=== PATIENT | female | born 1960 | race Caucasian/White ===

== ENCOUNTER 2021-12-24 01:07 | Emergency (ER) | payer BC ==
[2021-12-24 01:21] VITALS: BP 165/87
[2021-12-24] MEDS ORDERED: diphenhydrAMINE 50 MG/ML VIAL IV ONE (02:37)
[2021-12-24] MEDS ORDERED: FAMOTIDINE 20 MG/2 ML INJ IV ONE (02:37)
[2021-12-24] MEDS ORDERED: methylPREDNISolone Sod Succinate 125 MG/2 ML INJ IV ONE (02:38)
--- NOTE | 2021-12-24 04:34 | Emergency Department Report ---
HPI - General Chief Complaint: Allergic Reaction Time Seen by Provider: 12/24/21 02:36 - HPI HPI: Patient 61-year-old female with history of hypertension, lymphadenectomy who presents for allergic reaction with itching and tongue swelling times 4 hours tonight. Patient states unknown suspicious food. Patient is taking lisinopril p.o. however. No nausea or vomiting. Patient stated initially felt as though her tongue was swelling. Patient took Benadryl at home prior to coming to ED which provided some relief. There is no nausea vomiting no fever chills no wheezing or stridor. Patient is able to speak in full sentences. There is no respiratory distress. ED Past Medical Hx - Past Medical History Previous Medical History?: Yes Hx Hypertension: Yes Additional medical history: hyperthyroidism, Breast Ca - Surgical History Past Surgical History?: Yes Additional Surgical History: Lypm node removal - Social History Smoking Status: Never Smoker Substance Use Type: None - Medications Home Medications: Home Medications Medication Instructions Recorded Confirmed Last Taken Type EPINEPHrine [Epipen 2-Amilcar] 0.3 mg IM PRN PRN 14 Days #1 kit 12/24/21 Unknown Rx Famotidine [Pepcid] 20 mg PO BID 7 Days #14 tablet 12/24/21 Unknown Rx dexAMETHasone [Decadron] 4 mg PO Q12H 5 Days #10 tablet 12/24/21 Unknown Rx diphenhydrAMINE [Benadryl CAP] 25 mg PO Q8HR PRN #30 capsule 12/24/21 Unknown Rx ED Review of Systems ROS: Stated complaint: THROAT SWELLING/QUIQUE Other details as noted in HPI Constitutional: denies: chills, fever Eyes: denies: eye pain, eye discharge, vision change ENT: congestion, other. denies: ear pain, throat pain, dental pain, epistaxis (Tongue swelling) Respiratory: denies: cough, shortness of breath, wheezing Cardiovascular: denies: chest pain, palpitations Endocrine: no symptoms reported Gastrointestinal: denies: abdominal pain, nausea, diarrhea Genitourinary: denies: urgency, dysuria, discharge Musculoskeletal: denies: back pain, joint swelling, arthralgia Skin: denies: rash, lesions Neurological: denies: headache, weakness, paresthesias, vertigo Psychiatric: denies: anxiety, depression Hematological/Lymphatic: denies: easy bleeding, easy bruising Physical Exam - Physical Exam Vital Signs: Vital Signs 12/24/21 01:17 Temperature 98.5 F Pulse Rate 78 Respiratory 18 Rate Blood Pressure 165/87 [Left] O2 Sat by Pulse 98 Oximetry General: Patient is alert oriented x3. Patient appears nontoxic with no acute distress. There is no wheezing or stridor at this time. Patient is speaking in full sentences at this time. Physical Exam: Patient is ANO x3 amatory with steady gait neuro is intact and normal. Patient is PERRLA EOMI ENT airway is patent, respirations are even and unlabored, no lesions no exudate no stridor. Lungs are clear throughout heart rate is normal heart tones are normal. Abdomen soft nontender. Distal pulses are normal. ED Course Benadryl, Pepcid, Decadron will reassess.Vital Signs 12/24/21 01:17 Temperature 98.5 F Pulse Rate 78 Respiratory 18 Rate Blood Pressure 165/87 [Left] O2 Sat by Pulse 98 Oximetry Symptoms now improved with medications given in the ED. Pruritus is improving. Patient remains alert oriented x3 and with no acute distress. ED Medical Decision Making - Medical Decision Making This is allergic reaction. Symptoms are resolved with medications given in ED plan DC to home, EpiPen teaching completed, patient DC'd to home with prescriptions. We will follow-up with primary care doctor in 2 to 3 days. Patient will return to emergency department should symptoms worsen. Patient verbalized agreement understanding of discharge plan. Patient DC'd home in stable condition at this time. Critical care attestation.: If time is entered above; I have spent that time in minutes in the direct care of this critically ill patient, excluding procedure time. ED Disposition Clinical Impression: Allergic reaction Qualifiers: Encounter type: initial encounter Qualified Code(s): T78.40XA - Allergy, unspecified, initial encounter Disposition: HOME / SELF CARE / HOMELESS Is pt being admited?: No Does the pt Need Aspirin: No Condition: Stable Instructions: Allergies, Adult, [id number], How to Use an Auto-Injector Pen, Allergies, Adult Additional Instructions: Take medications as prescribed, use every p.m. as needed for severe allergy symptoms, follow-up with your doctor in 2 to 3 days. Return to emergency department should symptoms worsen. Prescriptions: diphenhydrAMINE [Benadryl CAP] 25 mg PO Q8HR PRN #30 capsule PRN Reason: Allergic Reaction dexAMETHasone [Decadron] 4 mg PO Q12H 5 Days #10 tablet EPINEPHrine [Epipen 2-Amilcar] 0.3 mg IM PRN PRN 14 Days #1 kit PRN Reason: Severe Allergies Famotidine [Pepcid] 20 mg PO BID 7 Days #14 tablet Referrals: JUAN CARLOS WILCOX MD [Staff Physician] - 3-5 Days Forms: Work/School Release Form(ED) Time of Disposition: 04:48
== END 2021-12-24 05:14 | disposition home or self-care (01) ==
LOC: ED 01:07
DX: T78.40XA Allergy, unspecified, initial encounter (principal)
CPT/HCPCS: 96374; 96375; 99282; J1200; J2930; J3490